=== PATIENT | male | born 1955 | race Caucasian/White ===

== ENCOUNTER 2016-10-13 01:54 | Emergency (ER) | payer MEDICARE ==
[~2016-10-13 01:54] MED LIST: ACTOS PO; AMLODIPINE BESYL5 MG PO; ASPIRIN1 GM PO; BACLOFEN10 MG PO; CIPRO PO; CLINDAMYCIN HC300 MG PO; COPAXONE; COPAXONE SUBQ; COREG PO; COREG12.5 MG PO; GABAPENTIN400 MG PO; GLUCOPHAGE XR500 MG PO; LANTUS100 U/ML; LANTUS100 U/ML SQ; LORTAB 5/500 TA1 TA1 PO; LOTREL 5/20 MG1 CAP PO; LOTREL 5/40 MG1 CAP PO; MAIL ORDER PHARMACY; METFORMIN HCL500 M1 PO; MIRAPEX; MIRAPEX PO; NEURONTIN PO; NOVOLOG100 UNIT/1; NOVOLOG100 UNITS/; TECFIDERA240 MG PO; TYLOX 5/500 CAP1 CAP PO; VIBRAMYCIN100 M1 PO; VITAMIN D35000 UNIT PO; ZANAFLEX4 M1 PO; ZESTRIL40 MG PO; ZOLOFT PO; ZOLOFT100 MG PO
== END 2016-10-13 02:10 | disposition home or self-care (01) ==
LOC: SED 01:54
DX: T16.1XXA Foreign body in right ear, initial encounter (principal); I10 Essential (primary) hypertension; E11.9 Type 2 diabetes mellitus without complications; K21.9 Gastro-esophageal reflux disease without esophagitis
CPT/HCPCS: 99282